=== PATIENT | male | born 1955 | race African-American/Black ===

== ENCOUNTER 2019-03-18 01:12 | Emergency (ER) | payer MEDICAID ==
[~2019-03-18] VITALS: Ht 177.8 cm; Wt 109.0 kg
[2019-03-18 01:47] VITALS: BP 130/80
[2019-03-18] MEDS ORDERED: LIDOCAINE HCL/PF 1% 10 MG/ML 5ML VIAL IJ ONE (02:15)
== END 2019-03-18 03:45 | disposition home or self-care (01) ==
LOC: ER 02:27
DX: L02.31 Cutaneous abscess of buttock (principal); R60.0 Localized edema; I10 Essential (primary) hypertension; F17.200 Nicotine dependence, unspecified, uncomplicated; Z96.659 Presence of unspecified artificial knee joint
CPT/HCPCS: 10060; 99283; J3490

== ENCOUNTER 2019-09-09 06:51 | Emergency (ER) | payer MEDICAID ==
[~2019-09-09] VITALS: Ht 185.4 cm; Wt 115.8 kg
[2019-09-09 07:20] VITALS: BP 158/85
[2019-10-27] MEDS ORDERED: ASPI-1497 MT (14:52)
[2019-10-27] MEDS ORDERED: TEST200V27 IM (14:52)
[2019-10-27] MEDS ORDERED: LOSA50TA41 MT (14:52)
[2019-10-28] MEDS ORDERED: METH-611 PO (08:44)
== END 2019-09-09 08:34 | disposition home or self-care (01) ==
LOC: ER 06:51
DX: M25.561 Pain in right knee (principal); I10 Essential (primary) hypertension; Z96.659 Presence of unspecified artificial knee joint
CPT/HCPCS: 99282

== ENCOUNTER → 2019-10-28 | Day surgery (SDC) | payer MEDICAID ==
[~2019-10-28] VITALS: Ht 177.8 cm; Wt 114.3 kg
[~2019-10-28] MED LIST: ASPI-1497 MT; LACTATED RINGERS 1,000 ML IV SCH; LOSA50TA41 MT; METH-611 PO; TEST200V27 IM
[2019-10-28 08:54] LABS: BASOPHILS % 0.3 % (0.0-2.0); HEMATOCRIT. 48.8 % (42.0-52.0); HEMOGLOBIN. 16.3 g/dL (14.0-18.0); LYMPHOCYTES % 20.8 % (20.0-50.0); MEAN CORPUSCULAR HEMOGLOBIN 31.1 pg (28.0-32.0); MEAN CORPUSCULAR VOLUME 92.8 fL (80.0-94.0); MONOCYTES % 5.9 % (2.0-8.0); PLATELET 199 x1000/uL (130-400); RED BLOOD CELL COUNT 5.25 mill/uL (4.7-6.1); RED CELL DISTRIBUTION WIDTH 15.4 % (11.6-14.6)
[2019-10-28 09:01] LABS: CHLORIDE 110 mEq/L (98-107)
[2019-10-28 09:13] LABS: *AMPHETAMINES SCREEN URINE NEGATIVE (NEGATIVE); *BARBITURATES SCREEN URINE NEGATIVE (NEGATIVE); *BENZODIAZEPINES SCREEN URINE NEGATIVE (NEGATIVE); *COCAINE SCREEN URINE NEGATIVE (NEGATIVE); CANNABINOID URINE SCREEN NEGATIVE (NEGATIVE); METHADONE URINE SCREEN NEGATIVE (NEGATIVE); OPIATES URINE SCREEN NEGATIVE (NEGATIVE)
[2019-10-28 09:14] LABS: PHENCYCLIDINE URINE SCREEN NEGATIVE (NEGATIVE)
== END | disposition home or self-care (01) ==
LOC: OR 08:01
PROVIDERS: ATTEND Internal Medicine Gastroenterology
DX: Z53.8 Procedure and treatment not carried out for other reasons (principal); I10 Essential (primary) hypertension; F19.11 Other psychoactive substance abuse, in remission; B18.2 Chronic viral hepatitis C; Z86.19 Personal history of other infectious and parasitic diseases; Z80.0 Family history of malignant neoplasm of digestive organs; Z79.82 Long term (current) use of aspirin; Z79.899 Other long term (current) drug therapy; Z96.652 Presence of left artificial knee joint
CPT/HCPCS: 36415; 80048; 80305; 85025; 93005

== ENCOUNTER 2020-06-12 03:41 | Emergency (ER) | payer MEDICAID ==
[~2020-06-12] VITALS: Ht 177.8 cm; Wt 118.0 kg
[~2020-06-12 03:41] MED LIST changes: -LACTATED RINGERS 1,000 ML IV SCH
[2020-06-12 03:49] VITALS: BP 161/78
[2020-06-12] MEDS ORDERED: LIDOCAINE HCL/EPINEPHRINE 1%-EPI 1:100,000 20 ML VIAL INFIL ONE (06:45)
[2020-06-12] MEDS ORDERED: LIDOCAINE 1%/EPI 1:100,000 10 ML VIAL IJ ONE (06:45)
[2020-06-12] MEDS ORDERED: DOXYCYCLINE HYCLATE 100MG CAPSULE PO ONE (06:45)
[2020-06-12] MEDS ORDERED: CEPHALEXIN 250MG CAPSULE PO ONE (06:45)
== END 2020-06-12 07:43 | disposition home or self-care (01) ==
LOC: ER 03:41
DX: L02.416 Cutaneous abscess of left lower limb (principal); I10 Essential (primary) hypertension
CPT/HCPCS: 10060; 87070; 87077; 87186; 87205; 99284; J3490

== ENCOUNTER → 2020-07-11 | Outpatient (CLI) | payer MEDICAID | END | disposition home or self-care (01) | LOC: LAB 08:13 | PROVIDERS: ATTEND Internal Medicine Gastroenterology | DX: Z01.812 Encounter for preprocedural laboratory examination (principal); Z20.828 Contact with and (suspected) exposure to other viral communicable diseases | CPT/HCPCS: C9803; U0003 ==

== ENCOUNTER → 2020-07-13 | Day surgery (SDC) | payer MEDICAID ==
[~2020-07-13] VITALS: Ht 177.8 cm; Wt 114.3 kg
[~2020-07-13] MED LIST changes: +LACTATED RINGERS 1,000 ML IV SCH
== END | disposition home or self-care (01) ==
LOC: OR 09:31
PROVIDERS: ATTEND Internal Medicine Gastroenterology
DX: I10 Essential (primary) hypertension (principal); Z86.010 Personal history of colon polyps; Z79.899 Other long term (current) drug therapy; Z98.890 Other specified postprocedural states

== ENCOUNTER → 2022-01-31 | Day surgery (SDC) | payer MEDICARE, MEDICAID ==
[~2022-01-31] VITALS: Ht 177.8 cm; Wt 108.9 kg
[~2022-01-31] MED LIST changes: +DEXAMETHASONE 4MG/ML 1ML VIAL ONE; +DIPHENHYDRAMINE 50MG/ML VIAL ONE; +GLYCOPYRROLATE 0.2 MG/ML 2ML VIAL ONE; -LACTATED RINGERS 1,000 ML IV SCH; +LIDOCAINE HCL/EPINEPHRINE 1%-EPI 1:100,000 20 ML VIAL ONE; -METH-611 PO; +METH-819 PO; +MIDAZOLAM HCL 2 MG/2 ML VIAL ONE; +ONDANSETRON HCL 4MG/2ML INJ ONE; +PROPOFOL 200MG/20ML VIAL IV ONE; +SODIUM CHLORIDE 0.9% 1,000 ML IV SCH
[2022-01-31 08:57] LABS: *AMPHETAMINES SCREEN URINE NEGATIVE (NEGATIVE); *BARBITURATES SCREEN URINE NEGATIVE (NEGATIVE); *BENZODIAZEPINES SCREEN URINE NEGATIVE (NEGATIVE); *COCAINE SCREEN URINE NEGATIVE (NEGATIVE); CANNABINOID URINE SCREEN NEGATIVE (NEGATIVE); METHADONE URINE SCREEN PRESUMTIVE POSITIVE (NEGATIVE); OPIATES URINE SCREEN PRESUMTIVE POSITIVE (NEGATIVE); PHENCYCLIDINE URINE SCREEN NEGATIVE (NEGATIVE)
[2022-01-31 10:41] LABS: BASOPHILS % 0.3 % (0.0-2.0); EOSINOPHILS % 2.2 % (0.0-5.0); HEMATOCRIT. 41.8 % (42.0-52.0); HEMOGLOBIN. 14.3 g/dL (14.0-18.0); LYMPHOCYTES % 23.9 % (20.0-50.0); MEAN CORPUSCULAR HEMOGLOBIN 30.8 pg (28.0-32.0); MEAN CORPUSCULAR VOLUME 90.2 fL (80.0-94.0); MEAN PLATELET VOLUME 8.2 fl (7.4-10.4); MONOCYTES % 6.4 % (2.0-8.0); NEUTROPHILS % 67.2 % (40.0-76.0); PLATELET 152 x1000/uL (130-400); RED BLOOD CELL COUNT 4.63 mill/uL (4.7-6.1); RED CELL DISTRIBUTION WIDTH 15.6 % (11.6-14.6)
[2022-01-31 10:51] LABS: CHLORIDE 110 mEq/L (98-107)
[2022-01-31 10:53] LABS: INR 1.1; PARTIAL THROMBOPLASTIN TIME 37.1 sec (23.4-31.0); PROTHROMBIN TIME 11.3 sec (9.6-11.0)
== END | disposition home or self-care (01) ==
LOC: OR 07:58
PROVIDERS: ATTEND Internal Medicine Gastroenterology
DX: Z12.11 Encounter for screening for malignant neoplasm of colon (principal); K64.8 Other hemorrhoids; K63.89 Other specified diseases of intestine; I10 Essential (primary) hypertension; M19.90 Unspecified osteoarthritis, unspecified site; E66.9 Obesity, unspecified; Z86.010 Personal history of colon polyps; Z80.0 Family history of malignant neoplasm of digestive organs; Z20.822 Contact with and (suspected) exposure to COVID-19; Z79.01 Long term (current) use of anticoagulants; Z79.899 Other long term (current) drug therapy; Z98.890 Other specified postprocedural states; Z86.19 Personal history of other infectious and parasitic diseases
CPT/HCPCS: 36415; 36573; 71045; 80048; 80305; 85025; 85610; 85730; 87426; 93005; C1725; C9803; G0105; J1100; J1200; J2250; J2405; J2704; J3490